=== PATIENT | female | born 1965 | race Caucasian/White ===

== ENCOUNTER 2018-08-25 09:08 | Inpatient (IN) ==
[2018-08-25] MEDS ORDERED: VANCOMYCIN IV PER PHARMACY MISC SCH (12:30)
[2018-08-25 13:04] LABS: BASO# 0.04 X1000 (0.0-0.2); BASO% 0.4 % (0.0-0.8); EOS# 0.76 X1000 (0.0-0.7); EOS% 7.4 % (0.0-10.0); HEMATOCRIT 45.3 % (37.0-47.0); HEMOGLOBIN 15.4 g/dL (12.0-16.0); IMM GRAN# 0.03 X1000 (0.0-0.04); IMM GRAN% 0.3 % (0.0-0.5); LYMPH# 3.17 X1000 (1.2-3.4); LYMPH% 30.8 % (20.5-51.1); MCH 29.6 PG (27-31); MCV 86.9 FL (81-99); MONO# 0.57 X1000 (0.11-0.59); MONO% 5.5 % (1.7-9.3); MPV 10.9 FL (7.4-10.4); NEUT# 5.72 X1000 (1.4-6.5); NEUT% 55.6 % (42.2-75.2); PLT 264 X1000 (130-400); RBC 5.21 XMIL (4.2-5.4); RDW 13.2 % (11.5-14.5); WBC 10.29 X1000 (4.8-10.8)
[2018-08-25 13:11] LABS: INR 0.87; PROTIME 12.6 Seconds (11.0-16.0)
[2018-08-25 13:32] LABS: AGAP 11; ALB/GLOB RATIO 1.4; ALBUMIN 4.3 g/dL (3.5-5.0); ALKALINE PHOSPHATASE 49 U/L (32-104); BUN 20 mg/dL (8-22); CHLORIDE 103 mmol/L (98-107); CK PROFILE 55 U/L (24-173); COSMO 290; CREATININE 0.7 mg/dL (0.5-0.9); ESTIMATED GFR > 60; GLUCOSE 106 mg/dL (70-104); GOT 16 U/L (10-30); GPT 29 U/L (10-36); MAGNESIUM 2.2 mg/dL (1.5-2.7); POTASSIUM 3.4 mmol/L (3.5-5.1); SODIUM 144 mmol/L (136-145); TCO2 30 mmol/L (25-35); TOTAL BILIRUBIN 1.05 mg/dL (0.20-1.00); TOTAL PROTEIN 7.3 g/dL (6.3-8.3)
[2018-08-25 13:34] LABS: FREE T4 0.83 ng/dL (0.93-1.70); TSH 0.94 uIUmL (0.27-4.20)
[2018-08-25] MEDS: MAXIPIME 2 GM in NS 100 ML IV SCH (14:36)
[2018-08-25] MEDS: ERYTHROMYCIN OPH OINTMENT BOTH EYES SCH ×3 (14:36→19:55)
--- NOTE | 2018-08-25 15:06 | Diag Imaging Result Doc PS360 ---
EXAM: CHEST-PORTABLE HISTORY: allergic reaction TECHNIQUE: Chest single view COMPARISON: None. FINDINGS: The lungs are well expanded. The heart is not enlarged. The vessels are not distended. There are no infiltrates. No effusion identified. IMPRESSION: Negative exam. Electronically signed by Varghese Manuel 08/25/2018 3:03 PM
[2018-08-25] MEDS ORDERED: KLOR-CON PO ONE (15:45)
[2018-08-25] MEDS ORDERED: VANCOMYCIN 2,000 MG in NS 500 ML IV ONE (16:00)
[2018-08-25] MEDS: NS 1,000 ML IV SCH (16:15)
--- NOTE | 2018-08-25 16:49 | HISTORY AND PHYSICAL ---
PRIMARY CARE PHYSICIAN: Dr. Will Sanchez CHIEF COMPLAINT: Facial swelling. HISTORY OF PRESENT ILLNESS: Ms. Whalen is a pleasant 53-year-old female who was directed admitted by Dr. Sanchez for facial cellulitis. Her symptoms began on Monday into Monday when she started having conjunctivitis type symptoms in both eyes with tearing, redness and yellow drainagefrom her eyes. This progressed to facial swelling, and she initially went to Dr. Sanchez who put her on Vigamox eyedrops. Her symptoms worsened and she started having facial swelling and puffiness, to which Dr. Sanchez prescribed antibiotics and steroids for and, unfortunately, has failed to improve her symptoms. She actually came to the ER last night for continued symptoms and was given another set of steroids and discharged home. Because her symptoms have yet to improve, Dr. Sanchez felt she would need direct admission for further treatment and evaluation. Labs are currently pending. She denies any fever. No chest pain. No shortness of breath, cough or congestion. She denies any otorrhea, rhinorrhea. No abdominal pain, nausea, vomiting, diarrhea, constipation, lower extremity edema, PND, orthopnea or any other symptoms. She is hemodynamically stable and will be admitted for further treatment and evaluation. PAST MEDICAL HISTORY: 1. Psoriasis. She has been on 2 different medications over the past few months by local imaging manager. She was recently taken off of Soriatane around 1-1/2 to 2 weeks ago for severe peeling of the hands. 2. Hypothyroidism. 3. Depression. PAST SURGICAL HISTORY: She has had a recent biopsy of a nodule about her left elbow. She has had a cholecystectomy, right ear surgery. She has also had tonsillectomy and adenoidectomy, breast reduction and titanium insert to the right ear for calcium deposit. SOCIAL HISTORY: No tobacco, alcohol or drug use. She is . is at the bedside. FAMILY HISTORY: Noncontributory. REVIEW OF SYSTEMS: A 14-point review of systems was obtained and found to be negative with the exception of the HPI. ALLERGIES: No known drug allergies. HOME MEDICATIONS: Klonopin 0.5 mg p.o. b.i.d. as needed, Benadryl 50 mg p.o. daily as needed, doxycycline 100 mg p.o. b.i.d., Lexapro 10 mg daily, flax seed 300 mL p.o. daily , Lasix 20 mg as needed daily, Xyzal 5 mg b.i.d., Metamucil 1 daily, [place] thyroid 90 mg daily. PHYSICAL EXAMINATION: VITAL SIGNS: Blood pressure is 129/79, heart rate is 88, respiratory rate 18, O2 saturation is 98% on room air, temperature is 97.6. GENERAL: This is a slightly overweight 53-year-old female in no acute distress. NEUROLOGICAL: Awake, alert and oriented. Follows commands without focal deficits. HEENT: She has significant cellulitis and erythema about the face and both orbits, and she has swelling and erythema of the right ear. TMs are clear bilaterally. Oropharynx does not have any erythema or edema. Nasopharynx examined without significant intranasal lesions or swelling. NECK: Trachea is midline. There is no anterior cervical lymphadenopathy. CHEST: Clear to auscultation bilaterally. CARDIOVASCULAR: Regular rate and rhythm. S1 and S2 noted. No murmurs. GASTROINTESTINAL: Soft, nontender and nondistended. Bowel sounds positive. EXTREMITIES: No edema, clubbing or cyanosis. Pulses 1+ bilaterally. DIAGNOSTIC DATA: Pending. ASSESSMENT AND PLAN: 1. Face cellulitis?. Likely, is not an infectious process (possibly medication induced), but we will continue aggressive abx therapy until infection is ruled out. Currently she is afebrile, we are awaiting lab work. We will order a max face CT to rule out deep abscess. We will order blood cultures, flu, strep test, CRP, sedimentation rate, BRIANNE, and check a chest x-ray. We will start vancomycin and cefepime and await further results. 2. Hypothyroidism. Stable. Checking thyroid function. We will continue her [place] thyroid. 3. Depression. Stable. Continue home medications. 4. Psoriasis. Stable. We will currently hold any of her psoriatic medications. 5. DVT prophylaxis with SCDs. Further recommendations to follow. Dictated by CRYSTAL Wild for Lewis Acuña MD Patient seen and examined by me face to face, all the laboratory, vitals signs and images were reviewed, face CT is negative for abscess, WBC is normal but she has some eosinophilia, likely this facial swelling and eye redness are because of a medication reaction, she has no respiratory failure, or SOB, no fever/chills, I agree with the FORM BUILDING SUPERVISOR's assessment and plan, Lewis Friend MD. cc: CRYSTAL Wild MD Kirk L. Jackson, MD [facility]
--- NOTE | 2018-08-25 16:55 | Diag Imaging Result Doc PS360 ---
EXAM: CT MAXILLOFACIAL(SINUS) W/CON HISTORY: facial cellulitis, eval for pre-septal vs orbital TECHNIQUE: Emergency CT of the sinuses and face with contrast COMPARISON: None. FINDINGS: No sinus opacification. No air-fluid levels. No mucosal thickening. Small bone spur along left side of the septum. Minimal septal deviation to the left. Mild periorbital soft tissue swelling. No well-defined fluid collection. No abscess. Normal orbits. The parotid and submandibular glands are symmetric. No enlarged lymph nodes. IMPRESSION: Mild periorbital soft tissue swelling Electronically signed by Varghese Manuel 08/25/2018 4:53 PM
[2018-08-26] MEDS: MAXIPIME 2 GM in NS 100 ML IV SCH (00:53)
[2018-08-26] MEDS: ERYTHROMYCIN OPH OINTMENT BOTH EYES SCH ×5 (00:54→21:17)
[2018-08-26] MEDS: NS 1,000 ML IV SCH ×2 (06:02→21:16)
[2018-08-26 07:41] LABS: BASO# 0.03 X1000 (0.0-0.2); BASO% 0.3 % (0.0-0.8); EOS# 0.84 X1000 (0.0-0.7); HEMATOCRIT 44.2 % (37.0-47.0); HEMOGLOBIN 14.9 g/dL (12.0-16.0); IMM GRAN# 0.02 X1000 (0.0-0.04); IMM GRAN% 0.2 % (0.0-0.5); LYMPH% 36.3 % (20.5-51.1); MCH 29.4 PG (27-31); MCHC 33.7 g/dL (33-37); MCV 87.2 FL (81-99); MONO# 0.53 X1000 (0.11-0.59); MONO% 5.7 % (1.7-9.3); MPV 10.9 FL (7.4-10.4); NEUT# 4.55 X1000 (1.4-6.5); NEUT% 48.5 % (42.2-75.2); PLT 244 X1000 (130-400); RBC 5.07 XMIL (4.2-5.4); RDW 13.3 % (11.5-14.5); WBC 9.37 X1000 (4.8-10.8)
[2018-08-26 08:04] LABS: AGAP 7; BUN 13 mg/dL (8-22); CALCIUM 9.2 mg/dL (8.8-10.2); CHLORIDE 103 mmol/L (98-107); COSMO 280; CREATININE 0.7 mg/dL (0.5-0.9); ESTIMATED GFR > 60; GLUCOSE 106 mg/dL (70-104); POTASSIUM 4.1 mmol/L (3.5-5.1); SODIUM 140 mmol/L (136-145); TCO2 30 mmol/L (25-35)
[2018-08-26] MEDS ORDERED: KLONOPIN PO PRN (08:08)
[2018-08-26] MEDS: METAMUCIL PO SCH (09:40)
[2018-08-26] MEDS: THYROID PO SCH (09:41)
[2018-08-26] MEDS ORDERED: BENADRYL PO ONE (10:29)
[2018-08-26] MEDS ORDERED: BENADRYL PO PRN (10:29)
[2018-08-26] MEDS: PEPCID IV SCH ×2 (11:34→21:17)
--- NOTE | 2018-08-26 11:37 | PROGRESS NOTE ---
DATE: 08/26/2018 SUBJECTIVE: No acute events overnight. Actually, I do believe the redness is a little bit better today. She still has facial swelling and eye redness, no shortness of breath, no wheezing. OBJECTIVE: Vital Signs: Temperature 97.4 degrees, pulse 80, respiratory rate 18, blood pressure 125/73, oxygen saturation 99 on room air. HEENT: Head normocephalic. No trauma. PERRLA. Her face is swollen, erythematous. Her mouth is not swollen and her tongue is normal. Her pharynx looks good. Neck: Supple. No JVD. Central trachea. Chest: Clear to auscultation bilaterally. Cardiovascular: RRR. Abdomen: Soft, nontender, nondistended. No hepatosplenomegaly. Extremities: No edema. No clubbing. No cyanosis. Neurological examination: The patient is alert and oriented x3. No focal deficits. LABORATORY: WBC 9.3, hemoglobin 14.9, hematocrit 44.2, platelets 244, eosinophils 0.84. Sodium 140, potassium 4.1, chloride 103, bicarbonate 30. BUN 13, creatinine 0.7, glucose 106, calcium 9.2. ASSESSMENT AND PLAN: 1. Likely an adverse reaction due to a medication. I do believe this is an allergic reaction to a medication. I will stop the antibiotics. C-reactive protein is normal at 2.6. Eosinophil level is high. She is not having fever or chills, and the leukocyte count is normal. I will put this patient on Benadryl and ranitidine. I have consulted the Infectious Disease doctor just to take a look at this, but I believe is an allergic reaction. 2. Hypothyroidism, stable. Continue with same management. 3. Depression, stable. Continue home medication. 4. Psoriasis, stable. We are currently holding any treatment for her psoriasis. I do believe probably this is a reaction to her Soriatane, which she already stopped a few days ago. 5. Deep vein thrombosis prophylaxis with sequential compression devices. I will keep this patient for one more night, and I will try to get an appointment with an crowning inspector tomorrow as an outpatient. If she is breathing fine and not more issues, and if the Infectious Disease doctor states that this is not an infection, I will send her home in the morning. cc: Lewis Acuña MD
[2018-08-26] MEDS ORDERED: VANCOMYCIN 1,650 MG in NS 250 ML IV SCH (16:00)
--- NOTE | 2018-08-26 18:34 | INFECTIOUS DISEASE CONSULT REP ---
DATE: 08/26/2018 CONCLUSION: The patient is admitted the hospital with what I think is urticaria and not cellulitis of the face, neck and part of the arms. RECOMMENDATIONS: I will leave to Dr. Thorne's expertise the treatment for this patient. I do not think antibiotics are necessary, except for the erythromycin ointment to the patient's eyes because it does appear that the eyes are injected and this could all be from some allergic factor or possibly it could be from conjunctivitis. DISCUSSION: The patient tells me approximately 2 months ago she started having swelling of her ears. In the past week her entire face swelled up and became erythematous. It also spread down the neck. There were also a few erythematous areas on her arms. She patient tells me 2 months ago her ears started swelling. The swelling on her face, neck and arms is pruritic. Lab studies show a CBC with a white count of 9370. There were 9% of the white count was eosinophils. Hemoglobin is 14.9, platelet count is 244,000 creatinine is 0.7. GFR is greater than 60. Chest x- ray shows no acute disease. CT scan of the sinuses shows mild periorbital soft tissue swelling. The direct strep test was negative. Blood cultures thus far are negative. Swab for influenza is negative. REVIEW OF SYSTEMS: Endocrine: Patient does not have diabetes, but she does have hypothyroidism. OBSTETRICAL/GYNECOLOGIC HISTORY: She is a 2, para 2, AB 0. PREVIOUS HOSPITALIZATIONS AND OPERATIONS: She has had two labor and deliveries and surgery on her right ear. She has also had a cholecystectomy and surgery on her arms. MEDICAL DISEASES: Positive for psoriasis. Hypothyroidism. INFECTIOUS DISEASE HISTORY: Negative for pneumonia and UTI. FAMILY HISTORY: Positive for diabetes mellitus, cancer and asthma. SOCIAL HISTORY: [place] She is . She has a dog as a pet. She does not know of any drug allergies she has. She does not smoke cigarettes, drink alcoholic beverages or abuse drugs. She works for the [employer]. Her job has something to do with Medicare. HOME MEDICATIONS: Include: Acitretin, Klonopin, Benadryl, doxycycline, Lexapro, Lasix, Xyzal, Metamucil and thyroid. PHYSICAL EXAMINATION: Vital Signs: Temperature is 97.4, pulse 80, respirations 18, blood pressure 125/73. General: This is an obese, middle-aged female. She is in no acute distress. Head, Eyes, Ears, Nose and Throat: She can hear my spoken words and see near objects. Her face is completely swollen with some erythematous areas. I do not see any white patches on her tongue and her tongue is not swollen. Both eyes appear to have scleral erythema. It is very mild erythema. Neck: There is some slight swelling on the neck with a lightish pinkish color. Lungs: Clear to auscultation. Cardiovascular: Regular heart rate. Abdomen: Soft and nontender. Neurologic: The patient is awake. She can move her extremities. There is no tremor. Her sensation is intact to touch. Her memory as regarding her medical history is intact. Thank you for the consult. I will be signing off the patient, but I am available to see her on a p.r.n. basis. cc: Celestino Marie MD
[2018-08-27] MEDS: PEPCID IV SCH ×2 (04:13→11:11)
[2018-08-27 08:00] LABS: AGAP 11; BUN 14 mg/dL (8-22); CALCIUM 9.4 mg/dL (8.8-10.2); CHLORIDE 104 mmol/L (98-107); COSMO 286; CREATININE 0.7 mg/dL (0.5-0.9); ESTIMATED GFR > 60; GLUCOSE 106 mg/dL (70-104); POTASSIUM 3.9 mmol/L (3.5-5.1); SODIUM 143 mmol/L (136-145); TCO2 28 mmol/L (25-35)
[2018-08-27 09:26] VITALS: BP 103/64
[2018-08-27] MEDS ORDERED: BENADRYL PO PRN (09:27)
[2018-08-27] MEDS: METAMUCIL PO SCH (09:31)
[2018-08-27] MEDS: ERYTHROMYCIN OPH OINTMENT BOTH EYES SCH (09:32)
[2018-08-27] MEDS: THYROID PO SCH (09:32)
[2018-08-27] MEDS: NS 1,000 ML IV SCH (09:32)
--- NOTE | 2018-08-28 14:03 | DISCHARGE SUMMARY ---
ADMISSION DATE: 08/25/2018 DISCHARGE DATE: 08/27/2018 DISCHARGE DIAGNOSES: 1. Likely hypersensitivity reaction to a medication. 2. Facial swelling/possible urticaria. 3. Hypothyroidism. 4. Depression. 5. Psoriasis. PROCEDURES PERFORMED: Maxillofacial CT scan dated 08/25/2018. Impression: Mild periorbital soft tissue swelling. Chest x-ray dated 08/25/2018. Impression: Negative exam. HOSPITAL COURSE: A 53-year-old female who was directly admitted by Dr. Sanchez for facial redness and possible cellulitis. It looks like the symptoms began on Monday into Monday when she started having some eye redness in both eyes with tearing, redness and yellow drainage from her eyes. This progressed to facial swelling. She initially went to Dr. Sanchez, who put her on Vigamox eyedrops and the symptoms worsened and she started having facial swelling and puffiness. Dr. Sanchez prescribed antibiotics and steroids, but unfortunately, the symptoms did not improve. Because her symptoms have yet to improve, Dr. Sanchez felt she would need direct admission for further treatment and evaluation. She denies chest pain, shortness of breath, cough, congestion. She denies any otorrhea, rhinorrhea, abdominal pain or nausea and vomiting. No lower extremity edema. No orthopnea or any other symptoms. She is basically hemodynamically stable. CT scan of the face shows some mild periorbital soft tissue swelling. Initially, she was placed on antibiotics, but since the white blood cell was normal, no fever, no chills, and the eosinophil count was elevated. It was felt that was likely an allergic/hypersensitivity reaction. Antibiotics were and we started this patient on Benadryl, azithromycin ointment and ranitidine. She did not have any shortness of breath. No wheezing. Vital signs were stable. I personally called and made an appointment at the Allergy, Asthma and Clinical database specialist at [facility], phone #[phone]. They accepted the patient and they will call the patient for an appointment. This patient will be discharged home. She will continue with the same management that she was getting here. She was evaluated actually during this hospitalization by the Infectious Disease doctor, just to rule out any kind of infection and he agreed with stopping the antibiotics. Patient is in stable medical condition. She will be discharged home with a follow up by her primary care doctor and the head tennis coach/allergy doctor. PHYSICAL EXAMINATION: Vitals: Temperature 97.9 degrees, pulse 69, respiratory rate 20, blood pressure 103/64, oxygen saturation 98 on room air. HEENT: Head normocephalic, no trauma. Facial swelling and redness. No pain to palpation. Her eyes are pink, but no itchiness, no secretion. Neck: Supple. No JVD. Central trachea. Chest: Clear to auscultation. No wheezing. No rales. Abdomen: Soft, nontender, nondistended. No hepatosplenomegaly. Extremities: No edema. No clubbing. No cyanosis. Neurological: The patient is alert and oriented x3. No focal deficits. LABORATORY: Sodium 143, potassium 3.9, chloride 104, bicarbonate 28, BUN 14, creatinine 0.7, glucose 106, calcium 9.4. DISCHARGE MEDICATIONS: Clonazepam 0.5 mg p.o. b.i.d. as needed. Lasix 20 mg p.o. daily as needed. Flax seed 300 mL p.o. daily. Citalopram 10 mg p.o. daily. Vitamin D3 1000 units p.o. daily. Thyroid pork 90 mg p.o. daily. Metamucil 1 tablet p.o. daily. Ranitidine 150 mg p.o. b.i.d. Azithromycin ophthalmic ointment, 1 application both eyes 4 times a day. Benadryl 50 mg p.o. q.6 hours as needed. FOLLOW-UP: Follow up by Dr. Sanchez, her primary care doctor in 1 or 2 weeks. Also, follow up with the head tennis coach, Dr. Joseph. They will call the patient for an appointment. TIME DISCHARGING THIS PATIENT: 35 minutes. cc: Lewis Acuña MD
== END 2018-08-27 12:51 | disposition home or self-care (01) | DRG 607 ==
LOC: SUATTDRO 09:08 → DIRADM 09:08 → 3N 10:30
PROVIDERS: ATTEND Internal Medicine
CPT/HCPCS: 70487; 71010; 71045; 80048; 80053; 82550; 83516; 83735; 84100; 84439; 84443; 84484; 85025; 85610; 85651; 86038; 86039; 86140; 86235; 87040; 87081; 87275; 87276; 87430; 87804; A9270; J0692; J3370; J7030; J7040; Q9967; S0028